=== PATIENT | female | born 1945 | race Caucasian/White ===

== ENCOUNTER 2024-04-12 07:05 | Emergency (ER) | payer MEDICARE ==
[~2024-04-12] VITALS: Ht 160 cm; Wt 65.8 kg
[2024-04-12 07:20] VITALS: BP 134/78; TEMP 98; O2SAT 99
== END 2024-04-12 09:38 ==
LOC: ER 07:11
DX: T82.898A Other specified complication of vascular prosthetic devices, implants and grafts, initial encounter (principal); F02.80 Dementia in other diseases classified elsewhere, unspecified severity, without behavioral disturbance, psychotic disturbance, mood disturbance, and anxiety; G20.A1 Parkinson's disease without dyskinesia, without mention of fluctuations; G30.9 Alzheimer's disease, unspecified; Y84.8 Other medical procedures as the cause of abnormal reaction of the patient, or of later complication, without mention of misadventure at the time of the procedure; Y92.89 Other specified places as the place of occurrence of the external cause